=== PATIENT | female | born 1930 | race Caucasian/White ===

== ENCOUNTER → 2017-01-05 | Outpatient (CLI) | payer BC ==
[~2017-01-05] MED LIST: ALBUAER19 INH; ANT25 PO; ASCO500T87 PO; ASPI81TA21 PO; CALC600T9 PO; CHOL1CAP57 PO; CNT PO; CRAN1TAB9 PO; DTR/2 PO; FOLI800T PO; HYDR-389 PO; LUTE1CAP PO; METH2.5T PO; MISCCAP80 PO; MOME220A INH; OMEG10002 PO; SIMV5TAB5 PO
--- NOTE | 2017-01-05 13:27 | MAMMOGRAPHY REPORT ---
BILATERAL DIGITAL SCREENING MAMMOGRAM WITH CAD: 01/05/2017 CLINICAL HISTORY: Routine screening. Patient has no complaints. TECHNIQUE: Bilateral CC and MLO views were obtained. Current study was also evaluated with a Compute r Aided Detection (CAD) system. COMPARISON: Comparison is made to exams dated: 12/30/2015 mammogram, 12/26/2014 mammogram, 11/19/2013 annemarie mogram, 11/14/2012 mammogram, 11/10/2011 mammogram, and 10/17/2009 mammogram - [facility]. BREAST COMPOSITION: There are scattered areas of fibroglandular density in both breasts. FINDINGS: 3 linear scar markers overlie the left breast. There are mild vascular calcifications in t he breasts. Benign coarsening calcifications bilaterally. Stable nodularity in the left breast. No new suspicious mass, architectural distortion or cluster of microcalcifications is seen. IMPRESSION: ACR BI-RADS CATEGORY 1: NEGATIVE There is no mammographic evidence of malignancy. A 1 year screening mammogram is recommended. The pa tient will receive written notification of the results. Approximately 10% of breast cancers are not detected with mammography. A negative mammographic report should not delay biopsy if a clinically suggestive mass is present. Torrie Dillard M.D. ay/:01/05/2017 10:55:33 [employer] Branch Manager: Shannon HERNANDEZ(Maycol)(M), [facility] letter sent: Normal 1/2 BI-RADS Code: ACR BI-RADS Category 1: Negative
== END | disposition home or self-care (01) ==
LOC: C.MAMM 09:48
PROVIDERS: ATTEND Family Medicine
DX: Z12.31 Encounter for screening mammogram for malignant neoplasm of breast (principal)

== ENCOUNTER → 2017-01-31 | Outpatient (CLI) | payer BC ==
[~2017-01-31] MED LIST changes: -DTR/2 PO; +TOLT2TAB PO
--- NOTE | 2017-01-31 10:24 | DIAGNOSTIC IMAGING REPORT ---
LEFT RIBS UNILATERAL WITH PA CHEST HISTORY:86 yearsFemaleDORSALGIA COMPARISON: Chest radiograph 04/13/2012. TECHNIQUE: Frontal view of the chest with multiple left-sided rib radiographs. FINDINGS: There are acute minimally displaced fractures of the lateral aspects of the 9th, 10th and 11th ribs. No associated pneumothorax is identified. There is extensive atherosclerosis of the aorta. Imaged upper abdominal structures appear unremarkable. IMPRESSION: Acute minimally displaced fractures of the lateral left 9th, 10th and 11th ribs without pneumothorax. The above report was generated using voice recognition software. It may contain grammatical, syntax or spelling errors. Electronically signed by: Lucho Ceron 01/31/2017 10:22 AM Dictated Date/Time: 01/31/2017 10:20 AM
== END | disposition home or self-care (01) ==
LOC: C.RAD1850 09:53
PROVIDERS: ATTEND Student in an Organized Health Care Education/Training Program
DX: M54.9 Dorsalgia, unspecified (principal); S22.42XA Multiple fractures of ribs, left side, initial encounter for closed fracture; X58.XXXA Exposure to other specified factors, initial encounter

== ENCOUNTER → 2017-04-11 | Outpatient (CLI) | payer BC ==
--- NOTE | 2017-04-11 14:50 | DIAGNOSTIC IMAGING REPORT ---
RIGHT HUMERUS MIN 2 VIEWS ROUTINE CLINICAL HISTORY: W18.2XXA M79.621 M89.8X1 R07.81 Right pain COMPARISON: None. DISCUSSION: The bones and joint spaces appear intact. There is no evidence of fracture, dislocation or bony disease. There is no evidence for soft tissue swelling. IMPRESSION: Negative study. The above report was generated using voice recognition software. It may contain grammatical, syntax or spelling errors. Electronically signed by: Jose Antonio Granger M.D. 04/11/2017 2:48 PM Dictated Date/Time: 04/11/2017 2:48 PM
--- NOTE | 2017-04-11 14:52 | DIAGNOSTIC IMAGING REPORT ---
RIGHT RIBS UNILATERAL WITH PA CHEST CLINICAL HISTORY: W18.2XXA M79.621 M89.8X1 R07.81 Right trauma. Pain. COMPARISON STUDY: None FINDINGS: Nondisplaced fractures right fifth 6 and seventh ribs. No evidence pneumothorax. Lungs are clear. Diaphragms are smooth. IMPRESSION: 1. Nondisplaced fractures right fifth sixth and seventh ribs. 2. No evidence for pneumothorax. The lungs are considered clear. The above report was generated using voice recognition software. It may contain grammatical, syntax or spelling errors. Electronically signed by: Jose Antonio Granger M.D. 04/11/2017 2:51 PM Dictated Date/Time: 04/11/2017 2:50 PM
--- NOTE | 2017-04-11 14:55 | DIAGNOSTIC IMAGING REPORT ---
RIGHT SCAPULA CLINICAL HISTORY: 86 years-old Female presenting with fall in bathtub on Tuesday, right-sided rib pain, arm pain. TECHNIQUE: Frontal and lateral views of the right scapula were obtained. COMPARISON: None. FINDINGS: Glenohumeral and acromioclavicular joints grossly congruent. No subluxation of the humeral head. Right scapula grossly intact without evidence of a displaced fracture. Deformity of the posterior right seventh rib, likely old fracture. IMPRESSION: 1. No radiographic evidence of acute osseous injury of the right scapula. 2. Old posterior right seventh rib fracture. Electronically signed by: Cayden Park M.D. 04/11/2017 2:53 PM Dictated Date/Time: 04/11/2017 2:51 PM
== END | disposition home or self-care (01) ==
LOC: C.RAD1850 14:17
PROVIDERS: ATTEND Nurse Practitioner Family
DX: M79.621 Pain in right upper arm (principal); M89.8X1 Other specified disorders of bone, shoulder; R07.81 Pleurodynia; W18.2XXA Fall in (into) shower or empty bathtub, initial encounter; S22.41XA Multiple fractures of ribs, right side, initial encounter for closed fracture; Z87.81 Personal history of (healed) traumatic fracture

== ENCOUNTER → 2017-06-20 | Outpatient (CLI) | payer BC ==
[~2017-06-20] MED LIST changes: +DTR/2 PO; -TOLT2TAB PO
[2017-06-20 13:19] LABS: CALCIUM 8.7 mg/dl (8.5-10.1); CREATININE 0.81 mg/dl (0.60-1.20)
== END | disposition home or self-care (01) ==
LOC: C.LAB1850 11:41
PROVIDERS: ATTEND Internal Medicine
DX: M81.0 Age-related osteoporosis without current pathological fracture (principal)

== ENCOUNTER 2017-08-29 20:18 | Emergency (ER) | payer BC ==
[~2017-08-29] VITALS: Ht 157.5 cm; Wt 52.3 kg
[~2017-08-29 20:18] MED LIST changes: -ASPI1TAB2 PO; -CYAN100020 PO; -DONE1TAB11 PO; -LUTE6TAB PO; -MECL1TAB42 PO; -MOME1AER5 INH
[2017-08-29 20:20] VITALS: TEMP 36.6; Ht 157.5 cm; Wt 52.3 kg
[2017-08-29] MEDS ORDERED: FENTANYL CITRATE INJ 50 MCG/1 ML 2 ML VIAL IV ONE (21:00)
[2017-08-29] MEDS ORDERED: OPTIRAY 320 IV PRN (21:15)
[2017-08-29 21:16] LABS: BASO % 0.3 %; BASO ABS # 0.03 K/uL (0-0.2); EOS % 0.1 %; EOS ABS # 0.01 K/uL (0-0.5); HEMATOCRIT 37.1 % (37-47); HEMOGLOBIN 12.5 g/dL (12.0-16.0); IG# 0.03 K/uL (0.00-0.02); LYMPH % 4.4 %; LYMPH ABS # 0.46 K/uL (1.2-3.4); MEAN CELL VOLUME 97.6 fL (80-100); MEAN CORPUSCULAR HEMOGLOBIN 32.9 pg (25-34); MEAN CORPUSCULAR HGB CONC 33.7 g/dl (32-36); MEAN PLATELET VOLUME 9.9 fL (7.4-10.4); MONO % 5.1 %; MONO ABS # 0.53 K/uL (0.11-0.59); NEUT % 89.8 %; NEUT ABS # 9.32 K/uL (1.4-6.5); PLATELET COUNT 237 K/uL (130-400); RED CELL DISTRIBUTION WIDTH CV 14.4 % (11.5-14.5); RED CELL DISTRIBUTION WIDTH SD 50.3 fL (36.4-46.3); WHITE BLOOD COUNT 10.38 K/uL (4.8-10.8)
[2017-08-29 21:19] LABS: ISTAT CREATININE 0.9 mg/dl (0.6-1.3); ISTAT IONIZED CALCIUM 1.13 mmol/l (1.12-1.32); ISTAT POTASSIUM 4.4 mEq/L (3.3-5.0)
[2017-08-29 21:32] LABS: CREATININE 0.95 mg/dl (0.60-1.20); POTASSIUM 4.4 mmol/L (3.5-5.1)
--- NOTE | 2017-08-29 22:09 | DIAGNOSTIC IMAGING REPORT ---
CT OF THE CHEST WITH IV CONTRAST CLINICAL HISTORY: hydropneumothorax, right rib fracture COMPARISON STUDY: Rib series dated 08/29/2017 TECHNIQUE: Following the IV administration of 116 mL of Optiray-320, CT of the thorax was performed from the thoracic inlet to the lung bases. Images are reviewed in the axial, sagittal, and coronal planes. IV contrast was administered without complication. A dose lowering technique was utilized adhering to the principles of ALARA. CT DOSE: 180.87 mGy.cm FINDINGS: Thyroid: Imaged portions of the thyroid gland are normal in appearance. Thoracic aorta: The thoracic aorta is normal in course and caliber, noting standard 3-vessel arch anatomy. No aneurysm or dissection is seen. There are diffuse atheromatous changes. Pulmonary vasculature: The pulmonary trunk is normal in caliber. There are no central filling defects identified to suggest pulmonary embolus. Note that this examination was not protocoled for the evaluation of pulmonary emboli. HEART: The heart is normal in size and configuration, without pericardial effusion. Lungs and pleural spaces: There is a moderate right anterior pneumothorax. There is trace right pleural fluid. There is extrapleural gas present. There is pulmonary emphysema. There are bibasal or dependent airspace opacities likely atelectatic. Mediastinum: There is no mediastinal lymphadenopathy. Amarilys: There is no nodes of pathologic hilar adenopathy Axilla: There is no evidence of pathologic axillary lymphadenopathy Upper abdomen: Partially visualized upper abdominal viscera is within normal limits. Skeletal structures: There are fractures of the right 11th, 10th, ninth, eighth, and seventh ribs. There is age-indeterminate fragmentation of the inferior scapular tip IMPRESSION: 1. Fractures of the right seventh through 11th ribs 2. Moderate right anterior pneumothorax 3. Trace right pleural fluid 4. By basilar dependent airspace opacities likely atelectatic Electronically signed by: Franki Jara M.D. 08/29/2017 10:08 PM Dictated Date/Time: 08/29/2017 10:01 PM
--- NOTE | 2017-08-29 22:16 | EMERGENCY ROOM VISIT NOTE ---
History First contact with patient: 20:22 Chief Complaint: SHORTNESS OF BREATH Stated Complaint: SOB History of Present Illness The patient is a 87 year old female who presents to the Emergency Room with complaints of mechanical fall earlier today when she tried to hoist a safe onto a roller cart in her home, the cart wheeled away and she lost her balance and fell on her right side. 3 hours later, due to the pain in her right back and ribs, she decided to go to [facility] in clinic, and chest x ray revealed a 3.6 cm hydropneumothorax in the right side. Physician sent her here to be assessed. Pt denies complaints or pain anywhere else, complains of no lacerations or bleeding. Says that on deep inspiration she feels pain in her right chest. Denies LOC, chest pain or pain anywhere else. Review of Systems See HPI for pertinent positives and negatives. Past Medical/Surgical History Medical Problems: (1) Asthma (2) Hyperlipidemia (3) UTI (urinary tract infection) Family History Patient reports no known family medical history. Social History Smoking Status: Never Smoker Marital Status: Housing Status: lives with family Occupation Status: retired Current/Historical Medications Scheduled Albuterol Inhaler (Ventolin Inhaler), 2 PUFFS INH QAM Ascorbic Acid (Vitamin C Tr/Paige Hips), 1,000 MG PO DINNER Aspirin (Jef Aspirin Ec Low Dose), 81 MG PO DAILY Calcium Carbonate-Vitamin D (Calcium + D), 1 TAB PO DINNER Cholecalciferol (Vitamin D3), 2,000 INTUNIT PO DINNER Cranberry (Vaccinium Macrocarp (Cranberry), 600 MG PO QAM Cyanocobalamin (Vitamin B12), 1,000 MCG PO DAILY Donepezil Hydrochloride (Donepezil Hcl), 5 MG PO DAILY Lutein-Zeaxanthin (Lutein W/Zeaxanthin), 20 MG PO DAILY Methotrexate Sodium (Methotrexate), 5 MG PO MON TUES Mometasone Furoate (Asmanex 120 Metered Doses), 1 PUFF INH QAM Multivitamins/Minerals (Centrum *), 1 TAB PO DINNER Reliance-3 Fatty Acids (Fish Oil), 1,000 MG PO DINNER Probiotic Product (Probiotic), 1 CAP PO QID Simvastatin (Zocor), 5 MG PO QPM Tolterodine Tartrate (Detrol), 2 MG PO QAM Scheduled PRN Folic Acid (Folic Acid), 800 MCG PO QAM PRN for WED,THUR,FRI,SAT,SUN Meclizine Hcl (Meclizine Hcl), 25 MG PO TID PRN for ERTIGO Physical Exam Vital Signs Date Time Temp Pulse Resp B/P (MAP) Pulse Ox O2 Delivery O2 Flow Rate FiO2 08/29/17 23:57 93 20 198/92 94 Nasal Cannula 2.0 08/29/17 23:03 95 20 169/73 92 08/29/17 22:07 92 20 154/56 94 Nasal Cannula 2.0 08/29/17 21:11 94 Room Air 08/29/17 21:09 88 20 186/89 94 Room Air 08/29/17 21:04 92 08/29/17 20:20 36.6 93 20 183/73 94 Room Air Physical Exam GENERAL: Awake, alert, well-appearing, in no distress HENT: Normocephalic, atraumatic. Oropharynx unremarkable. EYES: Normal conjunctiva. Sclera non-icteric. RESPIRATORY: Clear to auscultation. Diminished breath sounds over right>left. CARDIAC: Regular rate, normal rhythm. Extremities warm and well perfused. ABDOMEN: Soft, non-distended. No tenderness to palpation. No rebound or guarding. No masses. RECTAL: Deferred. MUSCULOSKELETAL: Chest examination reveals ++tenderness to right lower ribs on posterior and axial. The back is symmetrical on inspection without obvious abnormality. No joint edema. SKIN: No rash or jaundice noted. Medical Decision & Procedures Laboratory Results 08/29/17 21:00 Red Blood Count 3.80, Mean Corpuscular Volume 97.6, Mean Corpuscular Hemoglobin 32.9, Mean Corpuscular Hemoglobin Concent 33.7, Mean Platelet Volume 9.9, Neutrophils (%) (Auto) 89.8, Lymphocytes (%) (Auto) 4.4, Monocytes (%) (Auto) 5.1, Eosinophils (%) (Auto) 0.1, Basophils (%) (Auto) 0.3, Neutrophils # (Auto) 9.32, Lymphocytes # (Auto) 0.46, Monocytes # (Auto) 0.53, Eosinophils # (Auto) 0.01, Basophils # (Auto) 0.03 08/29/17 21:00 Test 08/29/17 21:00 08/29/17 21:06 White Blood Count 10.38 K/uL (4.8-10.8) Red Blood Count 3.80 M/uL (4.2-5.4) Hemoglobin 12.5 g/dL (12.0-16.0) Hematocrit 37.1 % (37-47) Mean Corpuscular Volume 97.6 fL (80-100) Mean Corpuscular Hemoglobin 32.9 pg (25-34) Mean Corpuscular Hemoglobin Concent 33.7 g/dl (32-36) Platelet Count 237 K/uL (130-400) Mean Platelet Volume 9.9 fL (7.4-10.4) Neutrophils (%) (Auto) 89.8 % Lymphocytes (%) (Auto) 4.4 % Monocytes (%) (Auto) 5.1 % Eosinophils (%) (Auto) 0.1 % Basophils (%) (Auto) 0.3 % Neutrophils # (Auto) 9.32 K/uL (1.4-6.5) Lymphocytes # (Auto) 0.46 K/uL (1.2-3.4) Monocytes # (Auto) 0.53 K/uL (0.11-0.59) Eosinophils # (Auto) 0.01 K/uL (0-0.5) Basophils # (Auto) 0.03 K/uL (0-0.2) RDW Standard Deviation 50.3 fL (36.4-46.3) RDW Coefficient of Variation 14.4 % (11.5-14.5) Immature Granulocyte % (Auto) 0.3 % Immature Granulocyte # (Auto) 0.03 K/uL (0.00-0.02) Prothrombin Time 10.2 SECONDS (9.0-12.0) Prothromb Time International Ratio 1.0 (0.9-1.1) Est Creatinine Clear Calc Drug Dose 33.0 ml/min Estimated GFR () 62.4 Estimated GFR (Non- 53.9 BUN/Creatinine Ratio 18.7 (10-20) Calcium Level 9.0 mg/dl (8.5-10.1) Bedside Hemoglobin 12.6 g/dl (12.0-16.0) Bedside Hematocrit 37 % (37-47) Bedside Sodium 141 mEq/L (135-144) Bedside Potassium 4.4 mEq/L (3.3-5.0) Bedside Chloride 101 mEq/L (101-112) Bedside Total CO2 25 mEq/l (24-31) Anion Gap 21.0 mmol/L (16-25) Bedside Blood Urea Nitrogen 19 mg/dl (7-18) Bedside Creatinine 0.9 mg/dl (0.6-1.3) Bedside Glucose (other) 125 mg/dl (70-99) Bedside Ionized Calcium (Anitha) 1.13 mmol/l (1.12-1.32) Medications Administered Medications (Trade) Dose Ordered Sig/Charlotte Route Start Time Stop Time Status Last Admin Dose Admin Fentanyl Citrate (Fentanyl Inj) 50 mcg NOW ONCE IV 08/29/17 21:00 08/29/17 21:01 DC 08/29/17 21:[address] OF THE CHEST WITH IV CONTRAST CLINICAL HISTORY: hydropneumothorax, right rib fracture COMPARISON STUDY: Rib series dated 08/29/2017 TECHNIQUE: Following the IV administration of 116 mL of Optiray-320, CT of the thorax was performed from the thoracic inlet to the lung bases. Images are reviewed in the axial, sagittal, and coronal planes. IV contrast was administered without complication. A dose lowering technique was utilized adhering to the principles of ALARA. CT DOSE: 180.87 mGy.cm FINDINGS: Thyroid: Imaged portions of the thyroid gland are normal in appearance. Thoracic aorta: The thoracic aorta is normal in course and caliber, noting standard 3-vessel arch anatomy. No aneurysm or dissection is seen. There are diffuse atheromatous changes. Pulmonary vasculature: The pulmonary trunk is normal in caliber. There are no central filling defects identified to suggest pulmonary embolus. Note that this examination was not protocoled for the evaluation of pulmonary emboli. HEART: The heart is normal in size and configuration, without pericardial effusion. Lungs and pleural spaces: There is a moderate right anterior pneumothorax. There is trace right pleural fluid. There is extrapleural gas present. There is pulmonary emphysema. There are bibasal or dependent airspace opacities likely atelectatic. Mediastinum: There is no mediastinal lymphadenopathy. Amarilys: There is no nodes of pathologic hilar adenopathy Axilla: There is no evidence of pathologic axillary lymphadenopathy Upper abdomen: Partially visualized upper abdominal viscera is within normal limits. Skeletal structures: There are fractures of the right 11th, 10th, ninth, eighth, and seventh ribs. There is age-indeterminate fragmentation of the inferior scapular tip IMPRESSION: 1. Fractures of the right seventh through 11th ribs 2. Moderate right anterior pneumothorax 3. Trace right pleural fluid 4. By basilar dependent airspace opacities likely atelectatic Electronically signed by: Franki Jara M.D. 08/29/2017 10:08 PM Dictated Date/Time: 08/29/2017 10:01 PM Medical Decision The patient is a 87 year old female who presents to the Emergency Room with complaints of mechanical fall earlier today when she tried to hoist a safe onto a roller cart in her home, the cart wheeled away and she lost her balance and fell on her right side. 3 hours later, due to the pain in her right back and ribs, she decided to go to [facility] in clinic, and chest x ray revealed a 3.6 cm hydropneumothorax in the right side. Physician sent her here to be assessed. Pt denies complaints or pain anywhere else, complains of no lacerations or bleeding. Says that on deep inspiration she feels pain in her right chest. Denies LOC, difficulty breathing, chest pain or pain anywhere else. Ddx: pneumothorax, hydrothorax, rib fracture, liver contusion CT chest shows moderate right anterior pneumothorax, with rib fractures in RT 7- 11 ribs. Oxygenating well here, in low 90s. Decision is made to insert pig catheter. 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 Preparations being made to do so now. Impression Primary Impression: Ribs, multiple fractures Additional Impression: Pneumothorax on right Departure Information Patient Instructions My [facility] Resident Tracking Resident Involvement: Resident Care Provided Care Provided: Adult ED Problem Qualifiers Primary Impression: Ribs, multiple fractures Encounter type: initial encounter Laterality: right
[2017-08-29] MEDS ORDERED: FENTANYL CITRATE INJ 50 MCG/1 ML 2 ML VIAL ONE (23:38)
[2017-08-29] MEDS ORDERED: LIDO/EPINEPHRINE/SOD BICARB 20 ML VIAL INFIL ONE (23:38)
[2017-08-30] MEDS ORDERED: MECL1TAB42 PO (00:01)
[2017-08-30] MEDS ORDERED: MOME1AER5 INH (00:03)
[2017-08-30] MEDS ORDERED: DONE1TAB11 PO (00:05)
[2017-08-30] MEDS ORDERED: LUTE6TAB PO (00:08)
[2017-08-30] MEDS ORDERED: CYAN100020 PO (00:09)
[2017-08-30] MEDS ORDERED: ASPI1TAB2 PO (00:11)
[2017-08-30] MEDS ORDERED: MISCCAP80 PO (00:12)
[2017-08-30] MEDS ORDERED: XYLOCAINE 1%/SOD BICARB 20 ML VIAL INFIL ONE (00:17)
--- NOTE | 2017-08-30 01:08 | EMERGENCY ROOM VISIT NOTE ---
History Report prepared by Karen: Teodora Philippe Under the Supervision of: Dr. Kamari Pardo M.D. First contact with patient: 20:22 Chief Complaint: SHORTNESS OF BREATH Stated Complaint: SOB Nursing Triage Summary: moving a large safe at 1400 and she twisted her back c/o right rib pain. History of Present Illness The patient is an 87 year old female who presents to the Emergency Room with complaints of an episode of fall earlier today. The patient was loading a 50 lb safe onto a rolling cart earlier today. The cart started to roll away and she lost her balance and fell backwards. She landed on her right side. She went to the [facility] walk in clinic and had an X-ray. She was found to have a hydropneumothorax. She was sent to the ED. She reports right rib pain which worsens with deep breaths. She denies any head injury. She denies any LOC, neck pain, abdominal pain, or SOB. She has a history of asthma. She denies any history of COPD or CHF. Source of History: patient Onset: earlier today Position: other (global) Quality: other (fall) Timing: other (episodic) Associated Symptoms: No LOC, No neck pain, No SOB, No abdominal pain Note: Pt reports right rib pain. Review of Systems See HPI for pertinent positives and negatives. A total of ten systems were reviewed and were otherwise negative. Past Medical & Surgical Medical Problems: (1) Asthma (2) Hyperlipidemia (3) UTI (urinary tract infection) Family History Patient reports no known family medical history. Social History Smoking Status: Former Smoker Marital Status: Housing Status: lives with family Occupation Status: retired Current/Historical Medications Scheduled Albuterol Inhaler (Ventolin Inhaler), 2 PUFFS INH QAM Ascorbic Acid (Vitamin C Tr/Paige Hips), 1,000 MG PO DINNER Aspirin (Jef Aspirin Ec Low Dose), 81 MG PO DAILY Calcium Carbonate-Vitamin D (Calcium + D), 1 TAB PO DINNER Cholecalciferol (Vitamin D3), 2,000 INTUNIT PO DINNER Cranberry (Vaccinium Macrocarp (Cranberry), 600 MG PO QAM Cyanocobalamin (Vitamin B12), 1,000 MCG PO DAILY Donepezil Hydrochloride (Donepezil Hcl), 5 MG PO DAILY Lutein-Zeaxanthin (Lutein W/Zeaxanthin), 20 MG PO DAILY Methotrexate Sodium (Methotrexate), 5 MG PO MON TUES Mometasone Furoate (Asmanex 120 Metered Doses), 1 PUFF INH QAM Multivitamins/Minerals (Centrum *), 1 TAB PO DINNER [place]-3 Fatty Acids (Fish Oil), 1,000 MG PO DINNER Probiotic Product (Probiotic), 1 CAP PO QID Simvastatin (Zocor), 5 MG PO QPM Tolterodine Tartrate (Detrol), 2 MG PO QAM Scheduled PRN Folic Acid (Folic Acid), 800 MCG PO QAM PRN for WED,,FRI,SAT,SUN Meclizine Hcl (Meclizine Hcl), 25 MG PO TID PRN for ERTIGO Allergies Coded Allergies: No Known Allergies (Verified , 08/30/17) Physical Exam Vital Signs Date Time Temp Pulse Resp B/P (MAP) Pulse Ox O2 Delivery O2 Flow Rate FiO2 08/30/17 01:59 96 14 185/78 95 08/30/17 01:37 96 14 185/78 95 Nasal Cannula 2.0 08/30/17 01:17 96 08/30/17 01:01 94 13 186/67 95 08/30/17 00:30 93 10 144/79 95 08/30/17 00:00 86 11 171/90 94 08/29/17 23:59 91 14 95 08/29/17 23:57 93 20 198/92 94 Nasal Cannula 2.0 08/29/17 23:03 95 20 169/73 92 08/29/17 22:07 92 20 154/56 94 Nasal Cannula 2.0 08/29/17 21:11 94 Room Air 08/29/17 21:09 88 20 186/89 94 Room Air 08/29/17 21:04 92 08/29/17 20:20 36.6 93 20 183/73 94 Room Air Physical Exam GENERAL: Awake, alert, uncomfortable-appearing, in no distress HENT: Normocephalic, atraumatic. Oropharynx unremarkable. EYES: Normal conjunctiva. Sclera non-icteric. NECK: Supple. No nuchal rigidity. FROM. No JVD. No midline ttp or step-offs. RESPIRATORY: Diminished right-sided breath sounds. Left lung CTA. CARDIAC: Regular rate, normal rhythm. Extremities warm and well perfused. Pulses equal. ABDOMEN: Soft, non-distended. No tenderness to palpation. No rebound or guarding. No masses. RECTAL: Deferred. MUSCULOSKELETAL: Tender to the right anterior and lateral chest wall. No crepitus. The back is symmetrical on inspection without obvious abnormality. No ttp to CTL spine. No step-offs. There is no CVA tenderness to palpation. No joint edema. LOWER EXTREMITIES: Calves are equal size bilaterally and non-tender. No edema. No discoloration. Pelvis stable, FROM b/l hips. NEURO: Normal sensorium. No sensory or motor deficits noted. SKIN: No rash or jaundice noted. Medical Decision & Procedures ER Provider Diagnostic Interpretation: Radiology results as stated below per my review and radiologist interpretation: CT OF THE CHEST WITH IV CONTRAST CLINICAL HISTORY: hydropneumothorax, right rib fracture COMPARISON STUDY: Rib series dated 08/29/2017 TECHNIQUE: Following the IV administration of 116 mL of Optiray-320, CT of the thorax was performed from the thoracic inlet to the lung bases. Images are reviewed in the axial, sagittal, and coronal planes. IV contrast was administered without complication. A dose lowering technique was utilized adhering to the principles of ALARA. CT DOSE: 180.87 mGy.cm FINDINGS: Thyroid: Imaged portions of the thyroid gland are normal in appearance. Thoracic aorta: The thoracic aorta is normal in course and caliber, noting standard 3-vessel arch anatomy. No aneurysm or dissection is seen. There are diffuse atheromatous changes. Pulmonary vasculature: The pulmonary trunk is normal in caliber. There are no central filling defects identified to suggest pulmonary embolus. Note that this examination was not protocoled for the evaluation of pulmonary emboli. HEART: The heart is normal in size and configuration, without pericardial effusion. Lungs and pleural spaces: There is a moderate right anterior pneumothorax. There is trace right pleural fluid. There is extrapleural gas present. There is pulmonary emphysema. There are bibasal or dependent airspace opacities likely atelectatic. Mediastinum: There is no mediastinal lymphadenopathy. Amarilys: There is no nodes of pathologic hilar adenopathy Axilla: There is no evidence of pathologic axillary lymphadenopathy Upper abdomen: Partially visualized upper abdominal viscera is within normal limits. Skeletal structures: There are fractures of the right 11th, 10th, ninth, eighth, and seventh ribs. There is age-indeterminate fragmentation of the inferior scapular tip IMPRESSION: 1. Fractures of the right seventh through 11th ribs 2. Moderate right anterior pneumothorax 3. Trace right pleural fluid 4. By basilar dependent airspace opacities likely atelectatic Electronically signed by: Franki Jara M.D. 08/29/2017 10:08 PM Dictated Date/Time: 08/29/2017 10:01 PM Laboratory Results 08/29/17 21:00 Red Blood Count 3.80, Mean Corpuscular Volume 97.6, Mean Corpuscular Hemoglobin 32.9, Mean Corpuscular Hemoglobin Concent 33.7, Mean Platelet Volume 9.9, Neutrophils (%) (Auto) 89.8, Lymphocytes (%) (Auto) 4.4, Monocytes (%) (Auto) 5.1, Eosinophils (%) (Auto) 0.1, Basophils (%) (Auto) 0.3, Neutrophils # (Auto) 9.32, Lymphocytes # (Auto) 0.46, Monocytes # (Auto) 0.53, Eosinophils # (Auto) 0.01, Basophils # (Auto) 0.03 08/29/17 21:00 Test 08/29/17 21:00 08/29/17 21:06 White Blood Count 10.38 K/uL (4.8-10.8) Red Blood Count 3.80 M/uL (4.2-5.4) Hemoglobin 12.5 g/dL (12.0-16.0) Hematocrit 37.1 % (37-47) Mean Corpuscular Volume 97.6 fL (80-100) Mean Corpuscular Hemoglobin 32.9 pg (25-34) Mean Corpuscular Hemoglobin Concent 33.7 g/dl (32-36) Platelet Count 237 K/uL (130-400) Mean Platelet Volume 9.9 fL (7.4-10.4) Neutrophils (%) (Auto) 89.8 % Lymphocytes (%) (Auto) 4.4 % Monocytes (%) (Auto) 5.1 % Eosinophils (%) (Auto) 0.1 % Basophils (%) (Auto) 0.3 % Neutrophils # (Auto) 9.32 K/uL (1.4-6.5) Lymphocytes # (Auto) 0.46 K/uL (1.2-3.4) Monocytes # (Auto) 0.53 K/uL (0.11-0.59) Eosinophils # (Auto) 0.01 K/uL (0-0.5) Basophils # (Auto) 0.03 K/uL (0-0.2) RDW Standard Deviation 50.3 fL (36.4-46.3) RDW Coefficient of Variation 14.4 % (11.5-14.5) Immature Granulocyte % (Auto) 0.3 % Immature Granulocyte # (Auto) 0.03 K/uL (0.00-0.02) Prothrombin Time 10.2 SECONDS (9.0-12.0) Prothromb Time International Ratio 1.0 (0.9-1.1) Est Creatinine Clear Calc Drug Dose 33.0 ml/min Estimated GFR () 62.4 Estimated GFR (Non- 53.9 BUN/Creatinine Ratio 18.7 (10-20) Calcium Level 9.0 mg/dl (8.5-10.1) Bedside Hemoglobin 12.6 g/dl (12.0-16.0) Bedside Hematocrit 37 % (37-47) Bedside Sodium 141 mEq/L (135-144) Bedside Potassium 4.4 mEq/L (3.3-5.0) Bedside Chloride 101 mEq/L (101-112) Bedside Total CO2 25 mEq/l (24-31) Anion Gap 21.0 mmol/L (16-25) Bedside Blood Urea Nitrogen 19 mg/dl (7-18) Bedside Creatinine 0.9 mg/dl (0.6-1.3) Bedside Glucose (other) 125 mg/dl (70-99) Bedside Ionized Calcium (Anitha) 1.13 mmol/l (1.12-1.32) Laboratory results reviewed by me Medications Administered Medications (Trade) Dose Ordered Sig/Charlotte Route Start Time Stop Time Status Last Admin Dose Admin Fentanyl Citrate (Fentanyl Inj) 50 mcg NOW ONCE IV 08/29/17 21:00 08/29/17 21:01 DC 08/29/17 21:08 50 MCG Fentanyl Citrate (Fentanyl Inj) 100 mcg STK-MED ONCE .ROUTE 08/29/17 23:38 08/29/17 23:39 DC 08/30/17 01:04 50 MCG Procedure Pigtail Catheter Thoracostomy Indication: Pneumothorax Written consent was obtained after the risks and benefits were explained, including but not limited to cardiac/liver/lung injury, bleeding, scarring, infection, pain, and bone/joint/nerve damage. At this time, the risks of the procedure are less than the risks of NOT performing the procedure. A time out was taken and the correct patient and site identified. The patient was prepped and draped in the standard surgical fashion. 1% lidocaine with Bupivicaine 5% was infused over the 4th intercostal space into the subcutaneous tissue. 1% lidocaine with Bupivicaine 5% again was used for anesthesia in intercostal muscle and subpleural space. 18 gauge syringe was used to enter the pleural cavity and air was noted upon entering the pleural cavity. Guide-wire was threaded without resistance, needle was removed. Scapel used to make small incision and dilator used. An 8.5 Albanian pigtail catheter was threaded and guide -wire removed. 3-0 silk suture was used to tether pigtail catheter to the skin. An occlusive dressing was then placed and tubing attached to the Pleur-evac suction. The patient tolerated the procedure well without complications. A postoperative x-ray was then performed which showed the pigtail catheter in the correct position and re-expansion of the right lung. ECG Indication: chest pain Rate (beats per minute): 92 Rhythm: normal sinus Findings: no acute ischemic change, other (normal axis) Change: Patient's electrocardiogram interpreted by me. ED Course 2119: The patient was evaluated in room B12A. A complete history and physical exam was performed. 0024: I discussed the patient's case with Dr. Zamora, [facility] trauma surgery. He has accepted the patient for transfer. 0056: Chest tube was placed according to the procedure note above. Medical Decision I reviewed the patient's past medical history, medications, and the nursing notes as described above. Differential diagnosis: contusion, fracture, pulmonary contusion, pneumothorax, hemothorax, pneumonia, bronchitis. The patient is a 87-year-old woman who presents emergency Department with multiple right-sided rib fractures and pneumothorax after having a mechanical fall [facility] On arrival the patient is uncomfortable but no acute distress, afebrile with stable vital signs. On exam, has ttp right anterior and lateral CW. Diminished right lung breath sounds. NC/AT, denies HS. No ttp to CTL spine. No step-offs. Pelvis stable with FROM of b/l hips. O2 saturation 89-92% on RA. EKG unremarkable. CT scan demonstrates right seventh through 11th ribs with moderate sized PTX. Thoracic surgery unavailable at this time. Given multiple rib fractures with PTX in this elderly patient, concern for increased mortality. Thus, appropriate to transfer to tertiary care center with trauma service. Case was discussed with Dr. Zamora, [facility] trauma surgery, who accepts the patient as direct SICU admission. 8.5 Albanian pigtail catheter placed per procedure note with post CXR demonstrating lung re- expansion. [facility] air transport to transport patient to [facility]. I discussed the case with the resident physician, examined the patient, and agree with the findings and plan as documented in the residents note unless otherwise clarified here by me. Medication Reconcilliation Current Medication List: was personally reviewed by me Blood Pressure Screening Patient's blood pressure: Elevated blood pressure Consults Time Called: 001 Consulting Physician: Dr. Zamora, [facility] trauma surgery Returned Call: 0024 I discussed the patient's case with him. He has accepted the patient for transfer. Impression Primary Impression: Pneumothorax on right Additional Impression: Ribs, multiple fractures Critical Care I have personally spent greater than 90 minutes of critical care time in the direct management of this patient. This includes bedside care, interpretation of diagnostic studies, and testing, discussion with consultants, patient, and family members, and other required patient management activities. This 90 minutes is in excess of all separately billable procedures. Scribe Attestation The scribe's documentation has been prepared under my direction and personally reviewed by me in its entirety. I confirm that the note above accurately reflects all work, treatment, procedures, and medical decision making performed by me. Departure Information Dispostion Transfer Acute Care Facility Referrals Marilia Ordonez D.O. (PCP) Patient Instructions My [facility] Problem Qualifiers Additional Impression: Ribs, multiple fractures Encounter type: initial encounter Laterality: right
[2017-08-30 01:59] VITALS: BP 185/78; PULSE 96; O2SAT 95
--- NOTE | 2017-08-30 07:26 | DIAGNOSTIC IMAGING REPORT ---
CHEST ONE VIEW PORTABLE CLINICAL HISTORY: B1 pneumothorax COMPARISON STUDY: 08/29/2017 FINDINGS: Interval placement of a right-sided drainage catheter. No complete reinflation of the right lung. Minimal residual pleural separation right pulmonary apex at 4 mm. Previously described fractures right sixth and seventh ribs. Left lung is clear. IMPRESSION: Near complete reinflation right lung post right chest tube placement. Minimal residual right apical pneumothorax with a maximum pleural separation of 4 mm The above report was generated using voice recognition software. It may contain grammatical, syntax or spelling errors. Electronically signed by: Jose Antonio Granger M.D. 08/30/2017 7:25 AM Dictated Date/Time: 08/30/2017 7:23 AM
== END 2017-08-30 02:01 | disposition short-term general hospital (02) ==
LOC: C.EDB 20:19
DX: S22.41XA Multiple fractures of ribs, right side, initial encounter for closed fracture (principal); S27.0XXA Traumatic pneumothorax, initial encounter; W18.39XA Other fall on same level, initial encounter; Y93.89 Activity, other specified; Y92.009 Unspecified place in unspecified non-institutional (private) residence as the place of occurrence of the external cause; J45.909 Unspecified asthma, uncomplicated; E78.5 Hyperlipidemia, unspecified; Z79.82 Long term (current) use of aspirin

== ENCOUNTER → 2017-08-29 | Outpatient (CLI) | payer BC ==
[~2017-08-29] MED LIST changes: +ASPI1TAB2 PO; +CYAN100020 PO; +DONE1TAB11 PO; +LUTE6TAB PO; +MECL1TAB42 PO; +MOME1AER5 INH
--- NOTE | 2017-08-29 19:25 | DIAGNOSTIC IMAGING REPORT ---
R RIBS UNILATERAL WITH PA CHEST CLINICAL HISTORY: Right-sided chest pain. Trauma. COMPARISON STUDY: 04/11/2017 FINDINGS: There is a right-sided pneumothorax the pleural separation of 36 mm. There are fractures of the right sixth and seventh ribs. There is a small right pleural effusion. Right basilar airspace opacities are likely atelectatic. IMPRESSION: 1. Fractures of the right sixth and seventh ribs 2. Right-sided hydropneumothorax. There is 36 mm of pleural separation. 3. Right basilar airspace opacities likely atelectatic Electronically signed by: Franki Jara M.D. 08/29/2017 7:23 PM Dictated Date/Time: 08/29/2017 7:21 PM
== END | disposition home or self-care (01) ==
LOC: C.RAD 18:37
PROVIDERS: ATTEND Student in an Organized Health Care Education/Training Program
DX: M54.9 Dorsalgia, unspecified (principal); S22.41XA Multiple fractures of ribs, right side, initial encounter for closed fracture; J94.8 Other specified pleural conditions; W19.XXXA Unspecified fall, initial encounter

== ENCOUNTER 2018-02-24 13:34 | Emergency (ER) | payer BC, OTHER ==
[~2018-02-24] VITALS: Ht 157.5 cm; Wt 56.8 kg
[~2018-02-24 13:34] MED LIST changes: -ANT25 PO; +ASPI1TAB2 PO; -ASPI81TA21 PO; +CYAN100020 PO; +DONE5TAB26 PO; -HYDR-389 PO; -LUTE1CAP PO; +LUTE6TAB PO; +MECL1TAB42 PO
[2018-02-24 13:43] VITALS: TEMP 36.7; Ht 157.5 cm; Wt 56.8 kg
[2018-02-24] MEDS ORDERED: DIPHTHERIA/TETANUS/PERTUSSIS 0.5 ML SYR/VIAL IM. ONE (14:00)
[2018-02-24] MEDS ORDERED: OPTIRAY 320 IV PRN (14:15)
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
[2018-02-24 14:31] LABS: ISTAT IONIZED CALCIUM 1.13 mmol/l (1.12-1.32); ISTAT POTASSIUM 4.2 mEq/L (3.3-5.0)
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
[2018-02-24] MEDS ORDERED: CIPR1TAB11 PO (15:49)
[2018-02-24] MEDS ORDERED: VNTHFA/IN INH (15:49)
[2018-02-24] MEDS ORDERED: MOME220A INH (15:49)
[2018-02-24] MEDS ORDERED: SIMV5TAB5 PO (15:49)
[2018-02-24] MEDS ORDERED: TOLT1CAP6 PO (15:49)
[2018-02-24] MEDS ORDERED: MULT-1092 PO (15:49)
[2018-02-24] MEDS ORDERED: OMEG1200 PO (15:49)
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
[2018-02-24] MEDS ORDERED: FENTANYL CITRATE INJ 50 MCG/1 ML 2 ML VIAL IV PRN (16:00)
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
[2018-02-24 17:53] VITALS: BP 199/76; PULSE 91; O2SAT 94
== END 2018-02-24 17:54 | disposition short-term general hospital (02) ==
LOC: EDBD 13:34 → C.EDB 13:34
DX: S12.600A Unspecified displaced fracture of seventh cervical vertebra, initial encounter for closed fracture (principal); S22.019A Unspecified fracture of first thoracic vertebra, initial encounter for closed fracture; S22.039A Unspecified fracture of third thoracic vertebra, initial encounter for closed fracture; S22.32XA Fracture of one rib, left side, initial encounter for closed fracture; S22.21XA Fracture of manubrium, initial encounter for closed fracture; S01.81XA Laceration without foreign body of other part of head, initial encounter; V43.52XA Car driver injured in collision with other type car in traffic accident, initial encounter; Y93.89 Activity, other specified; Y99.8 Other external cause status; Z23 Encounter for immunization; J45.909 Unspecified asthma, uncomplicated; E78.5 Hyperlipidemia, unspecified; Z87.891 Personal history of nicotine dependence; Z79.82 Long term (current) use of aspirin; Z79.899 Other long term (current) drug therapy

== ENCOUNTER → 2018-03-07 | Outpatient (CLI) | payer OTHER, BC ==
[~2018-03-07] MED LIST changes: -ALBUAER19 INH; +CIPR1TAB11 PO; -CNT PO; -DTR/2 PO; +MULT-1092 PO; -OMEG10002 PO; +OMEG1200 PO; +TOLT1CAP6 PO; +VNTHFA/IN INH
== END | disposition home or self-care (01) ==
LOC: C.RDSM 10:32
PROVIDERS: ATTEND Orthopaedic Surgery
DX: S12.9XXA Fracture of neck, unspecified, initial encounter (principal); X58.XXXA Exposure to other specified factors, initial encounter